=== PATIENT | male | born 1990 | race Two or more races ===

== ENCOUNTER 2018-11-25 10:54 | Emergency (ER) | payer OTHER ==
[~2018-11-25] VITALS: Ht 175.3 cm; Wt 86.4 kg
[2018-11-25] MEDS ORDERED: KETOROLAC 30 MG/ML VIAL (J1885) IV ONE (11:15)
[2018-11-25] MEDS ORDERED: KETO10TAB PO (13:31)
[2018-11-25 14:10] VITALS: BP 129/65
== END 2018-11-25 14:12 | disposition home or self-care (01) ==
LOC: M ED 10:54
DX: S86.012A Strain of left Achilles tendon, initial encounter (principal); X58.XXXA Exposure to other specified factors, initial encounter; Y92.099 Unspecified place in other non-institutional residence as the place of occurrence of the external cause; Y93.02 Activity, running; Y99.9 Unspecified external cause status
CPT/HCPCS: 96374; 99284; J1885